=== PATIENT | female | born 1975 | race African-American/Black ===

== ENCOUNTER 2017-12-20 11:20 | Inpatient (IN) | payer OTHER ==
[~2017-12-20] VITALS: Ht 162.6 cm; Wt 83.5 kg
--- NOTE | ~2017-12-20 | HC ---
[facility] [place] [address] [place] [address] CONSULTATION Name: KIRSTY GAMBOA Room #: 449-I ADM IN M.R.#: [id number] Admission: 12/20/17 Attend Phys: Pedro Villareal MD Discharge: Date of : 75 Report #: [id number] THIS REPORT FOR: //name// CC: Jorge Villareal REASON FOR CONSULTATION: I was asked to evaluate concerning fever. HISTORY OF PRESENT ILLNESS: The patient is a 42-year-old with underlying fibromyalgia. Noticed 3 days ago onset of myalgias, arthralgias and malaise. This was followed by fever and chills. She had rigors. Temperature went up to 102 degrees. Hospitalized on 12/20/2017 to the Emergency Room. She underwent laboratory evaluation, spinal tap CT imaging. Hospitalized and placed on ceftriaxone. Over the last 24 hours, her temperature has come down. She initially had nausea, not improved. She has some low back discomfort mostly on the right side. REVIEW OF SYSTEMS: Notes mild headache. No pharyngitis symptoms. Mild cough with no sputum production. No pleuritic chest pain. No abdominal pain. She has had some nausea without vomiting. No diarrhea. She has no dysuria, although her urine had a foul odor. She has a history of recurrent urinary tract infections which she is frequently on oral antibiotics for. Mild swelling in her ankles and toes. No rash. ALLERGIES: CODEINE, TOPAMAX. MEDICATIONS: As noted on her MAR, now on ceftriaxone and vancomycin. PAST MEDICAL HISTORY: Hypothyroidism, DVT, PE on Coumadin, fibromyalgia, glaucoma, gastroesophageal reflux, migraine headaches, cholecystectomy, bladder sling suspension surgery. FAMILY HISTORY: Hypertension. SOCIAL HISTORY: Nonsmoker, no significant alcohol intake. She is a [id number]-[id number] mom. No travel. No HIV risk factors. PHYSICAL EXAMINATION: VITAL SIGNS: Afebrile with maximum temperature 100.2 yesterday, hemodynamically stable. Oxygen saturation 98% on room air. GENERAL: Alert and cooperative, in no acute distress. SKIN: Unremarkable. LYMPH: Unremarkable. HEENT: Unremarkable. LUNGS: Clear. HEART: Regular, without murmur. ABDOMEN: Soft, mild tenderness in the suprapubic region. She had tenderness [facility] [address] [place] [address] CONSULTATION Name: KIRSTY GAMBOA Room #: 449-I [facility] IN ..#: [id number] Admission: 12/20/17 Attend Phys: Pedro Villareal MD Discharge: Date of : 75 Report #: [id number] over the right flank region to percussion and palpation. EXTREMITIES: Unremarkable. NEUROLOGIC: Normal. LABORATORY STUDIES: INR is 1.2, sodium 139, potassium 3.5, bicarbonate 24, creatinine 0.7. Hemoglobin 8.6, white count initially 12, now 9.4, platelet count 198,000. Differential, 85% segs, 5% lymphs, 7% monocytes. Electrocardiogram, sinus tachycardia. CT scan of the abdomen and pelvis, right focal pyelonephritis with heterogeneous enhancement of the right lower pole and mild perinephric edema. CSF examination normal. CT head normal. Chest x-ray normal. Lactate 1.2. Beta hCG negative. Urinalysis, 3+ blood, 1+ protein, trace leukocytes, rare wbc's, 11-20 rbc's, few bacteria. Blood cultures are pending. IMPRESSION: A 42-year-old with acute febrile illness, most consistent with right pyelonephritis. Although her urinalysis was fairly unremarkable, CT scan shows abnormality in the right kidney and the patient has a propensity for urinary tract infections. She has been a bit dehydrated and at risk for pyelonephritis. She has improved on her current antibiotic program. We would recommend repeating her urinalysis and sending off a urine culture. We will renew her home medications. Continue with ceftriaxone. <ELECTRONICALLY SIGNED> By: Jonathan Luz MD 12/21/17 1513 0837 1200 Jonathan Luz MD /nt
--- NOTE | ~2017-12-20 | EKG ---
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: : 1975 Requested By: Martha Garcia Order Number: [id number] MD: Chuy Magallon Measurements Intervals [place] Rate: 130 P: 40 WA: 145 QRS: 23 QRSD: 83 T: -31 QT: 303 QTc: 446 Interpretive Statements Sinus tachycardia RSR' in V1 or V2, right VCD Borderline T abnormalities, diffuse leads Compared to ECG 06/02/2015 02:11:38 no significant change was found Electronically Signed On 12-20-2017 17:14:32 CDT by Chuy Magallon [email or web address] <ELECTRONICALLY SIGNED> By: Chuy Magallon MD, [facility] 12/20/17 1714 1216 1216 Chuy Magallon MD, [facility] /EPI
--- NOTE | ~2017-12-20 | H ---
[facility] [place] [address] [place] [address] HISTORY AND PHYSICAL Name: KIRSTY GAMBOA Room #: 449-I ADM IN M.R.#: [id number] Admission: 12/20/17 Attend Phys: Pedro Villareal MD Discharge: Date of : 75 Report #: [id number] THIS REPORT FOR: //name// CC: Jorge Villareal DATE OF SERVICE: 12/20/2017 CHIEF COMPLAINT: Fever, generalized body ache. HISTORY OF PRESENT ILLNESS: The patient is a 42-year-old female with history of PE and DVT, fibromyalgia, presented to the Emergency Room complaining of generalized body ache and fever. Pain is primarily of the head, neck, back, legs, abdomen. She also had a fever of 102 last night, associated with chills, headache and constipation. She has some nausea, but no vomiting. The patient denies any dysuria. No skin rash. No cough, expectoration. She complains of mild abdominal pain in the right lower quadrant. PAST MEDICAL HISTORY: Significant for hypothyroidism, history of DVT and PE in the past, on Coumadin therapy. History of fibromyalgia, history of glaucoma eye surgery, history of gastroesophageal reflux disease, migraine. Laparoscopic cholecystectomy, bladder sling surgery. ALLERGIES: SHE IS ALLERGIC TO CODEINE AND TOPAMAX. HOME MEDICATIONS: Reviewed, please look at the nursing documentation. SOCIAL HISTORY: Denies smoking, alcohol abuse, or illicit drug abuse. FAMILY HISTORY: Significant for hypertension. REVIEW OF SYSTEMS: CONSTITUTIONAL: Fever and chills as above. She has had some mild headache. She does have some photophobia. No blurred vision or double vision. THROAT: Denies any sore throat. CARDIOVASCULAR: No chest pain, dizziness, palpitations. RESPIRATORY: No cough or expectoration. GASTROINTESTINAL: As above. GENITOURINARY: No dysuria, hematuria. NEUROLOGIC: No focal numbness or weakness of the extremities. PSYCHIATRIC: No anxiety or depression. The 12-point review of system is negative other than the positive and the negative dictated in the history of present illness and the review of system. PHYSICAL EXAMINATION: [facility] [address] [place] [address] HISTORY AND PHYSICAL Name: BEEKIRSTYANNY VILLEGAS Room #: 449-I [facility]#: [id number] Admission: 12/20/17 Attend Phys: Pedro Villareal MD Discharge: Date of : 75 Report #: [id number] VITAL SIGNS: Blood pressure 127/73, heart rate of 120 per minute, afebrile. GENERAL: The patient is awake and alert, not in acute respiratory distress. EYES: Pupils equal, reactive to light, nonicteric conjunctivae. NECK: Supple, no JVD, no bruit, no lymphadenopathy. CARDIOVASCULAR SYSTEM: S1, S2, negative S3, no murmur. CHEST: Bilateral air entry present, clear to auscultation. ABDOMEN: Soft, bowel sounds present, no mass, no organomegaly. There is mild tenderness in the right lower quadrant, no rebound tenderness. PERIPHERY: No pedal edema. No calf tenderness. Dorsalis pedis 1+. NEUROLOGICAL: No gross motor or sensory deficit. LABORATORY DATA: Reviewed. White count was 12,000, hemoglobin is 10.2. Platelets 239. Differential on that showed 91% neutrophils. INR is 1.2. Chemistry showed a sodium of 134, potassium is 2.8. Mag is 1.9, bilirubin is 1.1, AST 17, ALT 64, alkaline phosphatase is 128, lipase is 45. IMAGING: Chest x-ray showed no acute abnormality. CT of the brain showed no acute abnormality. The patient had a lumbar puncture and CSF studies, are presently pending. ASSESSMENT: 1. Febrile illness, etiology not clear, most likely related to viral illness. CSF study has been done in the Emergency Room to rule out meningitis. The patient will be continued empirically on IV antibiotic until we get the culture report. Infectious Disease will be consulted. 2. Dehydration. Continue IV fluid. 3. Hypokalemia. Potassium will be replaced. 4. Fibromyalgia. 5. Hypothyroidism. Continue with Synthroid. We will check TSH level. 6. History of pulmonary embolism and deep venous thrombosis. INR is subtherapeutic at 1.2. The patient will be restarted back on Coumadin in the morning. 7. History of depression and anxiety. The patient will be continued on Zoloft. Treatment plan has been explained to the patient in detail. <ELECTRONICALLY SIGNED> By: Pedro Villareal MD 12/21/17 1101 1511 1609 Pedro Villareal MD /nt
[~2017-12-20 11:20] MED LIST: ACETAMINOPHEN325 M1 PO; AZOPT OPHTH1 %/10 M1 OP; BENTYL20 MG PO; BIRTH CONTROL OR; CALCIUM 500 +1 EAC5; COLACE100 MG PO; COMBIGAN EYE DR10 ML OP; COUMADIN 2 MG TA2 M1 PO; COUMADIN 5 MG TA5 M1 PO; COUMADIN6 MG PO; DICLOXACILLIN500 MG OR; ENOXAPARIN80 MG/0.1 SUBQ; HYDROCODON-ACE1 EAC8 PO; HYDROXYCHLOROQ200 M1 PO; IBUPROFEN 600600 M1 PO; INDERAL LA160 MG PO; IRON325; LEVOTHYROXIN0.112 M1 PO; MACROBID 100 M100 M1 PO; NEURONTIN 300M300 M2 PO; NORCO 5-325 TA1 EACH PO; OMEPRAZOLE 20 M20 M1 PO; PREVACID PO; SYNTHROID100 MCG PO; TRAMADOL 50 MG50 MG PO; TRINATE TABLET1 TAB PO; VALIUM5 MG PO; ZOFRAN ODT4 MG PO
[2017-12-20 11:22] VITALS: BP 154/79
[2017-12-20 11:37] LABS: URINE BLOOD 3+ (Negative); URINE CLARITY CLEAR; URINE COLOR YELLOW; URINE GLUCOSE-RANDOM* NEGATIVE (Negative); URINE KETONES NEGATIVE (Negative); URINE LEUKOCYTES TRACE (Negative); URINE NITRITE NEGATIVE (Negative); URINE PROTEIN (DIPSTICK) 1+ (Negative); URINE SPECIFIC GRAVITY >= 1.030 (1.005-1.035)
[2017-12-20 11:38] LABS: ICTOTEST (BILI CONFIRMATORY) Negative (Negative); URINE BILIRUBIN NEGATIVE (Negative)
[2017-12-20] MEDS ORDERED: CELEXA 10 MG TA10 M1 PO (11:42)
[2017-12-20] MEDS ORDERED: ZOLOFT25 MG PO (11:44)
[2017-12-20 11:49] LABS: BACTERIA 1-9 Few /HPF (None Seen); CASTS None Seen /LPF (None Seen); CRYSTALS None Seen /LPF (None Seen); SQUAMOUS 4-10 Moderate /LPF (0-3); URINE WBC 0-5 Rare /HPF (0-5)
[2017-12-20 12:37] LABS: BASOPHILS 0.3 % (0.0-2.0); EOSINOPHILS 0.4 % (0.0-3.0); HEMATOCRIT 30.3 % (37.0-47.0); HEMOGLOBIN 10.2 gm/dL (12.0-15.0); LYMPHOCYTES 2.5 % (24.0-44.0); MCH 24.6 pg (26.0-34.0); MCHC 33.6 g/dL (28.0-37.0); MCV 73.3 fL (80.0-100.0); MONOCYTES 5.6 % (1.0-8.0); PLATELET COUNT 239 thou/uL (150-400); POLYS 91.2 % (36.0-66.0); RBC 4.13 mil/uL (4.20-5.00); RDW 16.7 % (10.5-14.5)
[2017-12-20 12:40] LABS: CALCIUM 8.9 mg/dL (8.5-10.1); CREATININE 0.7 mg/dL (0.6-1.0)
[2017-12-20 12:42] LABS: POTASSIUM 2.8 mmol/L (3.5-5.1)
[2017-12-20 12:48] LABS: ALBUMIN 3.5 g/dL (3.4-5.0); DIRECT BILIRUBIN 0.3 mg/dL (<0.1-0.3); TOTAL BILIRUBIN 1.1 mg/dL (<0.1-1.0); TOTAL PROTEIN 7.7 g/dL (6.4-8.2)
[2017-12-20 13:06] LABS: APTT 31.4 Seconds (24.5-32.8); INR 1.2
[2017-12-20 14:25] LABS: CSF GLUCOSE 69 mg/dL (40-70)
[2017-12-20 14:26] LABS: VOLUME 8 ml
[2017-12-20 14:27] LABS: CSF CLARITY COLORLESS; CSF COLOR CLEAR
[2017-12-20 14:34] LABS: CSF RBC 1 /mm3; CSF WBC 1 /mm3 (0-10)
[2017-12-20 14:45] VITALS: BP 127/73
[2017-12-20 15:43] VITALS: BP 117/85
[2017-12-20 16:00] VITALS: BP 120/64
[2017-12-20 19:20] VITALS: BP 115/72
[2017-12-20 23:47] VITALS: BP 110/64
[2017-12-21 04:15] LABS: BASOPHILS 0.3 % (0.0-2.0); EOSINOPHILS 0.9 % (0.0-3.0); HEMATOCRIT 25.7 % (37.0-47.0); HEMOGLOBIN 8.6 gm/dL (12.0-15.0); LYMPHOCYTES 5.7 % (24.0-44.0); MCH 24.9 pg (26.0-34.0); MCHC 33.6 g/dL (28.0-37.0); MONOCYTES 7.7 % (1.0-8.0); PLATELET COUNT 198 thou/uL (150-400); POLYS 85.4 % (36.0-66.0); RBC 3.47 mil/uL (4.20-5.00); RDW 16.9 % (10.5-14.5); WBC 9.4 thou/uL (4.0-11.0)
[2017-12-21 04:24] LABS: INR 1.2
[2017-12-21 04:31] LABS: CALCIUM 7.9 mg/dL (8.5-10.1); CREATININE 0.7 mg/dL (0.6-1.0); MAGNESIUM 1.9 mg/dL (1.8-2.4); POTASSIUM 3.5 mmol/L (3.5-5.1)
[2017-12-21 04:49] VITALS: BP 119/74; BP 157/79
[2017-12-21 10:06] LABS: URINE BILIRUBIN NEGATIVE (Negative); URINE BLOOD 3+ (Negative); URINE CLARITY CLEAR; URINE COLOR YELLOW; URINE GLUCOSE-RANDOM* NEGATIVE (Negative); URINE KETONES NEGATIVE (Negative); URINE LEUKOCYTES NEGATIVE (Negative); URINE NITRITE NEGATIVE (Negative); URINE PROTEIN (DIPSTICK) NEGATIVE (Negative)
[2017-12-21 10:22] VITALS: BP 113/69
[2017-12-21 10:24] LABS: CASTS None Seen /LPF (None Seen); CRYSTALS None Seen /LPF (None Seen); SQUAMOUS 4-10 Moderate /LPF (0-3); URINE RBC 3-10 Few /HPF (0-2); URINE WBC 0-5 Rare /HPF (0-5)
[2017-12-21 12:14] LABS: % SATURATION 2 % (20-39); IRON 6 ug/dL (50-170); TIBC 283 ug/dL (250-450)
[2017-12-21 12:18] LABS: ABSOLUTE RETIC COUNT 0.0555 10^6/uL; OBSERVED RETIC COUNT 1.6 % (0.6-2.6)
[2017-12-21 16:21] VITALS: BP 118/68
[2017-12-21 19:31] VITALS: BP 121/74
[2017-12-22 00:27] VITALS: BP 125/70
[2017-12-22 04:09] VITALS: BP 127/73
[2017-12-22 05:52] LABS: ABSOLUTE NEUTROPHILS 5.9 thou/uL (1.4-8.2); BASOPHILS 0.7 % (0.0-2.0); EOSINOPHILS 1.4 % (0.0-3.0); HEMATOCRIT 26.3 % (37.0-47.0); HEMOGLOBIN 9.1 gm/dL (12.0-15.0); LYMPHOCYTES 8.2 % (24.0-44.0); MCH 25.6 pg (26.0-34.0); MCHC 34.7 g/dL (28.0-37.0); MCV 73.7 fL (80.0-100.0); MONOCYTES 9.6 % (1.0-8.0); PLATELET COUNT 221 thou/uL (150-400); POLYS 80.1 % (36.0-66.0); RBC 3.57 mil/uL (4.20-5.00); WBC 7.3 thou/uL (4.0-11.0)
[2017-12-22 06:04] LABS: CALCIUM 8.7 mg/dL (8.5-10.1); CREATININE 0.7 mg/dL (0.6-1.0); INR 1.1; MAGNESIUM 1.8 mg/dL (1.8-2.4); POTASSIUM 3.5 mmol/L (3.5-5.1); PROTIME 10.8 Seconds (9.3-11.4)
[2017-12-22 08:00] VITALS: BP 130/82
[2017-12-22 16:00] VITALS: BP 138/78
[2017-12-22 19:00] VITALS: BP 136/76
[2017-12-23 04:22] VITALS: BP 129/77
[2017-12-23 05:55] LABS: INR 1.2; PROTIME 12.7 Seconds (9.3-11.4)
[2017-12-23 05:59] LABS: HEMATOCRIT 26.6 % (37.0-47.0); HEMOGLOBIN 8.7 gm/dL (12.0-15.0); MCH 24.8 pg (26.0-34.0); MCHC 32.6 g/dL (28.0-37.0); PLATELET COUNT 225 thou/uL (150-400); RBC 3.51 mil/uL (4.20-5.00); RDW 16.7 % (10.5-14.5); WBC 5.7 thou/uL (4.0-11.0)
[2017-12-23 06:08] LABS: CALCIUM 8.4 mg/dL (8.5-10.1); CREATININE 0.6 mg/dL (0.6-1.0); POTASSIUM 3.3 mmol/L (3.5-5.1)
[2017-12-23 08:37] LABS: ABSOLUTE NEUTROPHILS 3.6 thou/uL (1.4-8.2); NUCLEATED RBCS 1 /100WBC; PLATELET ESTIMATE NORMAL
[2017-12-23 10:04] VITALS: BP 142/75
[2017-12-23] MEDS ORDERED: KEFLEX500 M1 PO (10:33)
[2017-12-23] MEDS ORDERED: ENOXAPARIN80 MG/0.1 SUBQ (10:33)
[2017-12-23] MEDS ORDERED: IRON325 PO (10:33)
[2017-12-23] MEDS ORDERED: COUMADIN 5 MG TA5 M1 PO ×3 (11:20→11:21)
[2017-12-23 13:22] VITALS: BP 142/75
== END 2017-12-23 13:52 | disposition home or self-care (01) | DRG 689 ==
LOC: ER 11:20 → 4W 14:13 → EROBS 14:13 → 4W 15:59 → ENTRNSPT 12-23 13:34 → EDTRNSPTSTS 12-23 13:36 → 4W 12-23 13:52
PROVIDERS: Emergency Medicine; Internal Medicine; Specialist
PROC: 009U3ZZ Drainage of Spinal Canal, Percutaneous Approach (ICD-10-PCS; principal; 2017-12-20)
DX: N12 Tubulo-interstitial nephritis, not specified as acute or chronic (principal); E43 Unspecified severe protein-calorie malnutrition; E03.9 Hypothyroidism, unspecified; H40.9 Unspecified glaucoma; K21.9 Gastro-esophageal reflux disease without esophagitis; G43.909 Migraine, unspecified, not intractable, without status migrainosus; R00.0 Tachycardia, unspecified; M79.1 Myalgia; E86.0 Dehydration; E87.6 Hypokalemia; F32.9 Major depressive disorder, single episode, unspecified; F41.9 Anxiety disorder, unspecified; D50.9 Iron deficiency anemia, unspecified; Z68.31 Body mass index [BMI] 31.0-31.9, adult; Z90.49 Acquired absence of other specified parts of digestive tract; Z86.711 Personal history of pulmonary embolism; Z88.6 Allergy status to analgesic agent; Z88.8 Allergy status to other drugs, medicaments and biological substances; Z86.718 Personal history of other venous thrombosis and embolism; Z82.49 Family history of ischemic heart disease and other diseases of the circulatory system
CPT/HCPCS: 10045

== ENCOUNTER 2018-05-22 20:01 | Emergency (ER) | payer OTHER ==
[~2018-05-22] VITALS: Ht 160 cm; Wt 89.8 kg
[~2018-05-22 20:01] MED LIST changes: +CELEXA 10 MG TA10 M1 PO; +IRON325 PO; +KEFLEX500 M1 PO; +ZOLOFT25 MG PO
[2018-05-22] MEDS ORDERED: IRON325 M1 PO ×2 (20:21)
[2018-05-22] MEDS ORDERED: COUMADIN 5 MG TA5 M1 PO ×2 (20:21)
[2018-05-22] MEDS ORDERED: AMITRIPTYLINE H25 M2 PO ×2 (20:22)
[2018-05-22 20:59] LABS: PROTIME 116.9 Seconds (9.3-11.4)
[2018-05-22 21:02] LABS: INR 11.4
[2018-05-22 22:33] VITALS: BP 149/81
== END 2018-05-22 22:34 | disposition home or self-care (01) ==
LOC: ER 20:01
PROVIDERS: Nurse Practitioner Family
DX: S60.311A Abrasion of right thumb, initial encounter (principal); R79.1 Abnormal coagulation profile; Z88.5 Allergy status to narcotic agent; Z88.8 Allergy status to other drugs, medicaments and biological substances; E03.9 Hypothyroidism, unspecified; K21.9 Gastro-esophageal reflux disease without esophagitis; G43.909 Migraine, unspecified, not intractable, without status migrainosus; Z90.49 Acquired absence of other specified parts of digestive tract; W26.8XXA Contact with other sharp object(s), not elsewhere classified, initial encounter; Y93.89 Activity, other specified; Y92.89 Other specified places as the place of occurrence of the external cause; Y99.8 Other external cause status

== ENCOUNTER 2018-05-23 01:45 | Inpatient (IN) | payer OTHER ==
[~2018-05-23] VITALS: Ht 160 cm; Wt 89.8 kg
[~2018-05-23 01:45] MED LIST changes: +AMITRIPTYLINE H25 M2 PO; +IRON325 M1 PO
[2018-05-23 01:55] VITALS: BP 141/57
[2018-05-23 04:13] LABS: ABSOLUTE NEUTROPHILS 5.7 thou/uL (1.4-8.2); BASOPHILS 1.1 % (0.0-2.0); EOSINOPHILS 1.7 % (0.0-3.0); HEMATOCRIT 32.5 % (37.0-47.0); HEMOGLOBIN 10.7 gm/dL (12.0-15.0); LYMPHOCYTES 19.9 % (24.0-44.0); MCH 25.1 pg (26.0-34.0); MCHC 32.8 g/dL (28.0-37.0); MCV 76.7 fL (80.0-100.0); MONOCYTES 10.4 % (1.0-8.0); PLATELET COUNT 318 thou/uL (150-400); POLYS 66.9 % (36.0-66.0); RBC 4.24 mil/uL (4.20-5.00); RDW 16.4 % (10.5-14.5); WBC 8.6 thou/uL (4.0-11.0)
[2018-05-23 04:25] VITALS: BP 142/88
[2018-05-23 04:26] LABS: PROTIME 91.8 Seconds (9.3-11.4)
[2018-05-23 04:31] LABS: INR 8.9
[2018-05-23 04:38] LABS: CALCIUM 9.3 mg/dL (8.5-10.1); CREATININE 0.6 mg/dL (0.6-1.0); POTASSIUM 3.2 mmol/L (3.5-5.1)
[2018-05-23 04:50] VITALS: BP 157/89
[2018-05-23 07:20] VITALS: BP 142/89
[2018-05-23 15:28] VITALS: BP 153/89
[2018-05-23 19:25] VITALS: BP 136/81
[2018-05-24 03:44] VITALS: BP 135/80
[2018-05-24 05:44] LABS: HEMOGLOBIN 9.4 gm/dL (12.0-15.0); MCHC 32.4 g/dL (28.0-37.0); MCV 77.2 fL (80.0-100.0); RBC 3.76 mil/uL (4.20-5.00); RDW 16.5 % (10.5-14.5); WBC 6.8 thou/uL (4.0-11.0)
[2018-05-24 05:58] LABS: CREATININE 0.7 mg/dL (0.6-1.0); MAGNESIUM 1.9 mg/dL (1.8-2.4); POTASSIUM 3.2 mmol/L (3.5-5.1)
[2018-05-24 05:59] LABS: PROTIME 16.1 Seconds (9.3-11.4)
[2018-05-24 06:05] LABS: INR 1.5
[2018-05-24 07:32] VITALS: BP 128/77
[2018-05-24 11:43] VITALS: BP 128/77
== END 2018-05-24 13:20 | disposition home or self-care (01) | DRG 918 ==
LOC: ER 01:45 → 4E 04:49 → ENTRNSPT 05-24 12:53 → EDTRNSPTSTS 05-24 12:57 → 4E 05-24 13:20
PROVIDERS: Emergency Medicine; Internal Medicine; Nurse Practitioner Acute Care
DX: T45.511A Poisoning by anticoagulants, accidental (unintentional), initial encounter (principal); N39.0 Urinary tract infection, site not specified; M25.451 Effusion, right hip; E03.9 Hypothyroidism, unspecified; H40.9 Unspecified glaucoma; K21.9 Gastro-esophageal reflux disease without esophagitis; G43.909 Migraine, unspecified, not intractable, without status migrainosus; E66.9 Obesity, unspecified; E87.6 Hypokalemia; M79.7 Fibromyalgia; S76.011A Strain of muscle, fascia and tendon of right hip, initial encounter; X58.XXXA Exposure to other specified factors, initial encounter; Y93.89 Activity, other specified; Y92.89 Other specified places as the place of occurrence of the external cause; Y99.8 Other external cause status; Z86.718 Personal history of other venous thrombosis and embolism; Z68.35 Body mass index [BMI] 35.0-35.9, adult; Z90.49 Acquired absence of other specified parts of digestive tract; Z86.711 Personal history of pulmonary embolism; Z79.01 Long term (current) use of anticoagulants; Z79.899 Other long term (current) drug therapy; Z88.5 Allergy status to narcotic agent; Z88.8 Allergy status to other drugs, medicaments and biological substances
CPT/HCPCS: 10084

== ENCOUNTER 2019-04-03 20:14 | Emergency (ER) | payer OTHER ==
[2019-04-03 21:34] VITALS: BP 171/98
== END 2019-04-03 21:36 | disposition left against medical advice (07) ==
LOC: ER 20:14
DX: Z53.21 Procedure and treatment not carried out due to patient leaving prior to being seen by health care provider (principal)

== ENCOUNTER 2019-05-22 18:16 | Emergency (ER) | payer OTHER ==
[~2019-05-22] VITALS: Ht 162.6 cm; Wt 90.7 kg
[2019-05-22] MEDS ORDERED: TRAZODONE HCL50 MG PO (18:48)
[2019-05-22] MEDS ORDERED: CYANOCOBAL1000 MCG/1 IM (18:50)
[2019-05-22 20:53] LABS: URINE BILIRUBIN NEGATIVE (Negative); URINE BLOOD 2+ (Negative); URINE CLARITY CLEAR; URINE COLOR YELLOW; URINE GLUCOSE-RANDOM* NEGATIVE (Negative); URINE KETONES NEGATIVE (Negative); URINE LEUKOCYTES-REFLEX NEGATIVE (Negative); URINE NITRITE-REFLEX NEGATIVE (Negative); URINE PROTEIN (DIPSTICK) NEGATIVE (Negative); URINE SPECIFIC GRAVITY 1.015 (1.005-1.035); URINE UROBILINOGEN 0.2 E.U./dl (0.2-1.0)
[2019-05-22 21:05] LABS: HEMATOCRIT 39.8 % (37.0-47.0); MCH 28.3 pg (26.0-34.0); MCHC 32.5 g/dL (28.0-37.0); MCV 87.1 fL (80.0-100.0); PLATELET COUNT 218 thou/uL (150-400); RBC 4.57 mil/uL (4.20-5.00); WBC 6.1 thou/uL (4.0-11.0)
[2019-05-22 21:12] LABS: SQUAMOUS 0-3 Few /LPF (0-3)
[2019-05-22 21:13] LABS: BACTERIA-REFLEX None Seen /HPF (None Seen); CASTS None Seen /LPF (None Seen); CRYSTALS None Seen /LPF (None Seen); URINE WBC-REFLEX None Seen /HPF (0-5)
[2019-05-22 21:14] LABS: ANION GAP 8 mmol/L (7-16); BUN 7 mg/dL (7-18); CALCIUM 9.3 mg/dL (8.5-10.1); CHLORIDE 104 mmol/L (98-107); CO2 29 mmol/L (21-32); CREATININE 0.8 mg/dL (0.6-1.0); GLUCOSE 93 mg/dL (74-106); POTASSIUM 3.4 mmol/L (3.5-5.1); SODIUM 141 mmol/L (136-145)
[2019-05-22 21:22] LABS: ALBUMIN 3.8 g/dL (3.4-5.0); SGOT 19 U/L (15-37); SGPT 21 U/L (30-65); TOTAL BILIRUBIN < 0.1 mg/dL (<0.1-1.0); TOTAL PROTEIN 7.8 g/dL (6.4-8.2)
[2019-05-22 21:39] LABS: ABSOLUTE NEUTROPHILS 4.5 thou/uL (1.4-8.2)
[2019-05-22 21:40] LABS: ANISOCYTOSIS 1+; POLYCHROMASIA OCCASIONAL
[2019-05-22] MEDS ORDERED: NORCO 5-325 TA1 EAC1 PO (21:43)
[2019-05-22 21:58] VITALS: BP 147/79
== END 2019-05-22 22:06 | disposition home or self-care (01) ==
LOC: ER 18:16
PROVIDERS: Physician Assistant
DX: G43.909 Migraine, unspecified, not intractable, without status migrainosus (principal); M79.7 Fibromyalgia; R10.9 Unspecified abdominal pain; E03.9 Hypothyroidism, unspecified; K21.9 Gastro-esophageal reflux disease without esophagitis; Z88.5 Allergy status to narcotic agent; Z88.8 Allergy status to other drugs, medicaments and biological substances; Z79.01 Long term (current) use of anticoagulants; Z79.899 Other long term (current) drug therapy; Z90.49 Acquired absence of other specified parts of digestive tract; Z98.890 Other specified postprocedural states